=== PATIENT | female | born 1930 | race Two or more races ===

== ENCOUNTER 2020-12-25 19:00 | Inpatient (IN) | payer MEDICARE ==
[~2020-12-25] VITALS: Ht 165.1 cm; Wt 55.5 kg
--- NOTE | 2020-12-25 19:10 | NUR ---
PT BIBRA C/O HEADACHE. PT AAOX2 BREATHING EVENLY AND UNLABORED. 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 PT ATTACHED TO MONITOR AND POX. PT GIVEN BLANKET AND CALL LIGHT WITHIN REACH
--- NOTE | 2020-12-25 19:10 | NUR ---
Note kristianone in EDM - 12/25/20 at 1930 by DE PT BIBRA C/O HEADACHE. PT AAOX4 BREATHING EVENLY AND UNLABORED. 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 PT ATTACHED TO MONITOR AND POX. PT GIVEN BLANKET AND CALL LIGHT WITHIN REACH
--- NOTE | 2020-12-25 19:12 | NUR ---
TAKEN TO CT
[2020-12-25] MEDS ORDERED: IV NS 0.9% 1,000 ML BAG IV ONE (19:30)
[2020-12-25 19:43] LABS: BASOPHILS % (AUTO) 0.4 % (0.0-2.0); EOSINOPHILS % (AUTO) 0.7 % (0.0-6.0); HEMATOCRIT 38 % (33-45); HEMOGLOBIN 12.4 g/dL (11.5-14.8); LYMPHOCYTES # (AUTO) 1.2 K/uL (0.8-4.8); LYMPHOCYTES % (AUTO) 15.2 % (20.0-44.0); MEAN CORPUSCULAR HGB CONC 33 g/dl (31.0-36.0); MEAN CORPUSCULAR VOLUME 94 fL (82-100); MONOCYTES # (AUTO) 0.9 K/uL (0.1-1.30); MONOCYTES % (AUTO) 11.5 % (2.0-12.0); NEUTROPHILS # (AUTO) 5.8 K/uL (1.8-8.9); NEUTROPHILS % (AUTO) 72.2 % (43.0-81.0); PLATELET COUNT (AUTO) 206 K/uL (150-450); RED BLOOD CELL COUNT(AUTO) 4.03 MIL/uL (4.0-5.2)
--- NOTE | 2020-12-25 19:45 | NUR ---
BLOOD OBTAINED AND SENT TO LAB
[2020-12-25 19:54] LABS: CALCIUM, SERUM 9.5 mg/dL (8.5-10.1); CARBON DIOXIDE 27 mmol/L (21-32); CHLORIDE 102 mmol/L (98-107); GLUCOSE 130 mg/dL (74-106); POTASSIUM 3.5 mmol/L (3.5-5.1); SODIUM SERUM 139 mmol/L (136-145); UREA NITROGEN, BLOOD 23 mg/dL (7-18)
[2020-12-25 19:55] LABS: CREATININE 0.8 mg/dL (0.6-1.3)
[2020-12-25 20:00] LABS: SERUM AMMONIA 0 umol/L (11-32)
[2020-12-25 20:01] LABS: ALANINE AMINOTRANSFERASE 25 U/L (12-78); ALBUMIN 3.6 g/dL (3.4-5.0); ALKALINE PHOSPHATASE 70 U/L (46-116); ASPARTATE AMINOTRANSFERASE 23 U/L (15-37); BILIRUBIN,DIRECT 0.1 mg/dL (0.0-0.2); BILIRUBIN,TOTAL 0.5 mg/dL (0.2-1.0)
[2020-12-25 20:02] LABS: ACETAMINOPHEN < 2 ug/ml (10-30); TOTAL PROTEIN, SERUM 7.1 g/dL (6.4-8.2)
[2020-12-25 20:14] LABS: BILIRUBIN,URINE Negative (NEGATIVE); COLOR,URINE YELLOW (YELLOW); LEUKOCYTE ESTERASE ,URINE Trace (NEGATIVE); NITRITE, URINE Negative (NEGATIVE); PROTEIN,URINE Negative (NEGATIVE); UGLUCOSE Negative (NEGATIVE); UROBILINOGEN,URINE 0.2 EU/dL (0.2)
[2020-12-25 20:15] LABS: ALCOHOL, BLOOD < 3 mg/dL (0-0)
[2020-12-25] MEDS ORDERED: ENOXAPARIN SODIUM 80 MG/0.8 ML DISP.SYRIN SQ ONE (20:26)
[2020-12-25] MEDS ORDERED: ASPIRIN 325 MG TABLET ONE (20:26)
[2020-12-25 20:30] LABS: BACTERIA,URINE Few /HPF (None Seen); RBC,URINE NONE SEEN /HPF (0-2); SQUAMOUS EPITHELIAL CELL,UR Few /HPF (None Seen)
[2020-12-25] MEDS ORDERED: ENOXAPARIN SODIUM 60 MG/0.6 ML DISP.SYRIN SQ ONE (20:30)
[2020-12-25] MEDS ORDERED: ASPIRIN 81 MG TAB.CHEW PO ONE (20:30)
[2020-12-25] MEDS ORDERED: BENA5TAB5 PO (20:47)
[2020-12-25] MEDS ORDERED: DIGO125T PO (20:48)
[2020-12-25] MEDS ORDERED: WARF-68 PO (20:50)
--- NOTE | 2020-12-25 20:55 | NUR ---
VERBAL ORDER 0.5MG IV OF ATIVAN
[2020-12-25] MEDS ORDERED: LORAZEPAM INJ 2 MG/ML VIAL ONE (20:56)
[2020-12-25 21:03] LABS: THYROID STIMULATING HORMONE 2.634 uIU/mL (0.358-3.74)
--- NOTE | 2020-12-25 21:03 | NUR ---
FACESHEET AND CLINICALS FAXED TO [facility].
[2020-12-25] MEDS ORDERED: LORAZEPAM INJ 2 MG/ML VIAL IV ONE (21:30)
--- NOTE | 2020-12-25 22:15 | NUR ---
TELE 312-2
--- NOTE | 2020-12-25 22:18 | NUR ---
PT PLACED ON 2L O2 FOR COMFORT
--- NOTE | 2020-12-25 22:24 | NUR ---
gave report to brandie Conti for augustine
[2020-12-25] MEDS ORDERED: DULO20CA PO (22:28)
[2020-12-25] MEDS ORDERED: METOPROLOL TARTRATE INJ 5 MG/5 ML AMPUL IVP ONE (22:30)
[2020-12-25] MEDS ORDERED: METOPROLOL TARTRATE INJ 5 MG/5 ML AMPUL ONE (22:39)
[2020-12-25 23:05] VITALS: BP 154/77
--- NOTE | 2020-12-25 23:10 | NUR ---
CRYSTALIZER TENDER Opening/Admitting Notes Patient arrived via gurney at approximately 2305 accompanied by Nurse Suarez and an EMT. Patient was oriented to the staff and room. Patient's on room air with no respiratory distress noted. Patient's connected to a tele monitor with no cardiac distress noted. Patient has an IV access on her right AC G#20, which is intact and patent. Patient has a caregiver at bedside. Patient's in no acute distress at this time. Safety measures in place: Bed locked, bed alarm on, side rails up x3, and call light within reach. Will continue to monitor the patient.
[2020-12-25] MEDS ORDERED: MAG HYDROX/AL HYDROX/SIMETH 30 ML UDC PO PRN (23:30)
[2020-12-25] MEDS ORDERED: Z GUARD REMEDY 2 OZ OINT TP PRN (23:30)
[2020-12-25] MEDS ORDERED: MAGNESIUM HYDROXIDE 30 ML UDC PO PRN (23:30)
[2020-12-25] MEDS ORDERED: IV NS 0.9% 1,000 ML IV PRN (23:30)
[2020-12-25] MEDS ORDERED: ZOLPIDEM TARTRATE 5 MG TABLET PO PRN (23:30)
[2020-12-25] MEDS ORDERED: ONDANSETRON HCL/PF 4 MG/2 ML VIAL IVP PRN (23:30)
[2020-12-25] MEDS ORDERED: ACETAMINOPHEN 325 MG TABLET PO PRN (23:30)
[2020-12-26] MEDS ORDERED: DULOXETINE HCL 20 MG CAPSULE.DR PO SCH
[2020-12-26 02:33] VITALS: BP 154/77
[2020-12-26] MEDS ORDERED: POTA10TA10 PO (03:52)
[2020-12-26] MEDS ORDERED: SIMV-46 PO (03:52)
[2020-12-26] MEDS ORDERED: METO25TA6 PO (03:52)
[2020-12-26 04:00] VITALS: BP 149/68
--- NOTE | 2020-12-26 07:16 | NUR ---
chemist organic Closing Notes Patient's alert and oriented x2-3. Patient's on room air with no respiratory distress noted. Patient's connected to a tele monitor with no cardiac distress noted. Patient has an IV access on her right AC G#20, which is running NS at 75ml/hr. Patient has a caregiver at bedside. Patient's in no acute distress at this time. Safety measures in place: Bed locked, bed alarm on, side rails up x3, and call light within reach. Endorsed care to the day shift nurse.
[2020-12-26] MEDS ORDERED: PANTOPRAZOLE 40 MG TABLET.DR PO SCH (07:30)
--- NOTE | 2020-12-26 07:30 | NUR ---
PT RECEIVED RESTING COMFORTABLY IN BED. NO S/S OR C/O PAIN OR DISTRESS NOTED. SIDE RAILS UP X2, CALL LIGHT LEFT WITHIN REACH. WILL CONTINUE PLAN OF CARE.
[2020-12-26 08:00] VITALS: BP 152/83
[2020-12-26] MEDS ORDERED: POTA10CA43 PO (08:28)
[2020-12-26] MEDS ORDERED: WARF-68 PO (08:28)
[2020-12-26] MEDS ORDERED: DIGOXIN 0.125 MG TABLET PO SCH (09:00)
[2020-12-26] MEDS ORDERED: METOPROLOL TARTRATE 25 MG TABLET PO SCH (09:00)
[2020-12-26] MEDS ORDERED: ASPIRIN 325 MG TABLET PO SCH (09:00)
[2020-12-26] MEDS ORDERED: BENAZEPRIL HCL 5 MG TABLET PO SCH (09:00)
[2020-12-26 09:35] LABS: ALBUMIN 3.7 g/dL (3.4-5.0); BILIRUBIN,TOTAL 1.1 mg/dL (0.2-1.0); CALCIUM, SERUM 9.2 mg/dL (8.5-10.1); CREATININE 0.8 mg/dL (0.6-1.3); MAGNESIUM 1.6 mg/dL (1.8-2.4); POTASSIUM 3.1 mmol/L (3.5-5.1); TOTAL PROTEIN, SERUM 7.3 g/dL (6.4-8.2)
[2020-12-26 09:43] LABS: BASOPHILS % (AUTO) 0.5 % (0.0-2.0); EOSINOPHILS % (AUTO) 0.9 % (0.0-6.0); HEMATOCRIT 38 % (33-45); HEMOGLOBIN 12.5 g/dL (11.5-14.8); LYMPHOCYTES # (AUTO) 1.2 K/uL (0.8-4.8); MEAN CORPUSCULAR HGB CONC 33 g/dl (31.0-36.0); MEAN CORPUSCULAR VOLUME 95 fL (82-100); MONOCYTES # (AUTO) 0.7 K/uL (0.1-1.30); MONOCYTES % (AUTO) 9.2 % (2.0-12.0); NEUTROPHILS # (AUTO) 5.3 K/uL (1.8-8.9); NEUTROPHILS % (AUTO) 72.4 % (43.0-81.0); PLATELET COUNT (AUTO) 224 K/uL (150-450); RED BLOOD CELL COUNT(AUTO) 4.03 MIL/uL (4.0-5.2); WHITE BLOOD COUNT (AUTO) 7.3 K/uL (4.3-11.0)
[2020-12-26 09:46] LABS: THYROID STIMULATING HORMONE 3.162 uIU/mL (0.358-3.74)
[2020-12-26] MEDS ORDERED: HYDR-4075 PO (09:53)
[2020-12-26 10:00] VITALS: BP 152/83
[2020-12-26 10:07] LABS: DIGOXIN 0.66 ng/mL (0.90-2.00)
--- NOTE | 2020-12-26 10:55 | NUR ---
Cryptoanalysis Teacher consult: visitor services specialist consult requested to discuss code status. Patient's daughter requested DNR status. Patient is 89-year-old, female. SW met with patient at her bedside in the med-surg unit. Patient was calm and resting. Patient's radiologic electronic specialist was at the bedside. Patient was alert and oriented x4. SW discussed the patient's living arrangements. Patient stated that she currently has 24h caregivers and lives at [address] [place] [id number]; [phone]. Patients caregiver, Marylou Hoang, , provided SW with patients daughters contact information, Sushila, . SW asked the patient if the patients daughter is her next of kin and patient agreed. Patients caregiver reported that the patients spouse is . SW asked the patient if she agreed to DNR code status and patient agreed. SW offered the patient a senior resource packet and senior booklet New Lifestyles: Guide to Long-Term and Care. Patient accepted the resources and thanked REGINA. REGINA discussed discharge plans with the patient and patients caregiver. Patient will return to her prior living arrangement at home and will be taken home by her caregiver. REGINA notified MAGALY Crum regarding order for DNR code status. MAGALY Crum to follow up with order. PLAN: Patient plans to return to prior living arrangement at the time of discharge. MAGALY Crum to follow up with order for code status. No further SS intervention at this time, however, SW will remain available as needed. SENIOR RESOURCES: ABUSE PREVENTION: ELDER ABUSE HOTLINE (12/01) ADULT PROTECTIVE SERVICES HOTLINE LONG-TERM CARE [facility] Region AREA ON AGING (HOTLINE) ADULT DAY HEALTH CARE CARE CENTERS: Private pay or Medi-lamar funded adult day care [facility] [facility] , [facility] , [facility] , [facility] Adult [facility] Care , [facility] Adult Day Health Care , [facility] Adult Day[facility] Center , [place] [facility] , [facility] Adult Center , [place] ALZHEIMERS DISEASE/DEMENTIA: Alzheimers Association Helpline [facility] Chapter www.alz.org/Community [facility] Department of Aging www.lacity.org Family Caregiver [place] www.caregiver.org [place] Caregiver Resources Center/Family Support www.[facility].org CANCER RESOURCES: [place] Cancer Society www.cancer.org Cancer Support Community www.CancerSupportVvsb.org: CancerCare www.cancercare.org [facility] Cancer Support [place] www.[facility] lander - lander.org [facility] HEALTH ASSOCIATIONS: AARP www.aarp.org ALS Association (ask for Rose) www.als.org [place] Diabetes Association www.diabetes.org [place] Heart Association www.heart.org [place] Lung Association www.lungusa.org [place] Parkinson Disease Association www.apdaparkinson.org [place] , www.redcross.org Arthritis Foundation www.arthritis.org Crohns & Colitis Foundation of [place] www.ccfa.org/chapters/bentley National Multiple Sclerosis Society www.nationalmssociety.org Myasthenia Gravis Foundation www.myasthenia-ca.org National Stroke Association www.stroke.org CONSERVATORSHIP & GUARDIANSHIP: AARZoë Cheyanne Kaur Legal Services Center for Health Care Rights [place] Information and Referral Supplier Diversity Director Foundation [facility]: [facility] Bar Referral Service [facility] Legal Services Office of the Public Guardian [place] EYESIGHT DISORDER RESOURCES: [place] Macular Degeneration Foundation [facility] www.[facility].org GRIEF AND BEREAVEMENT RESOURCES: The [place] , [facility] THE [place] Connection , [facility] Bereavement Center , [place] HEARING DISORDER RESOURCES: [place] Telephone Access Program Deaf and Disabled Telecommunications Program www.ddtp.[facility].ca.gov HearRx Hearing Centers ([place]) Better Hearing Systems , [place] GLAD ([facility] Agency on Deafness) V/ TTY; Pipe Line Gauger , [facility] Hearing [facility] -low income hearing aid assistance www.hca [facility] north flor[facility] hospitalfoundation.org [place] [facility] , Shelly HELP AT HOME CAREGIVER SUPPORT: In Home Support Services (Must have Medi-Lamar to be eligible) *Ask for a list of agencies that provide services to assist with care in the home. Local Senior Centers also have listings of care providers. HOME SAFETY MODIFICATIONS AND EQUIPMENT: Senior centers have additional referrals. [place] Housing and Community Investment Dept. Handyworker Program (low income) or Visit http://hcidla.[facility].org/wbd-ejaqkk-zp for more information National Seating and Mobility and/or ; Forever Active www.foreveractivemed.VASS Technologies Stay Home Safe www.Stayhomesafe.com LIFE ALERT RESPONSE SYSTEM: [employer] 733-099-3921 www. Dragon Innovation Life Alert 070-779-9647 www.Biscotti Life Station 386-407-9549 www.Execation.[employer]ASS Technologies Safe Return 002-578-6340 www.alz.or/safereturn Cell Phones for Seniors www.hField Technologies MEALS AND FOOD PROGRAMS: Nadine Meals on Wheels [phone] [place] Meals on Wheels 842-785-6244 [facility] [phone] [place] to the Homebound 735-099-4559 [place] to the Homebound [phone] [facility] to the Homebound [phone] [facility] Health Services to the Homebound [phone] [facility] [phone] [facility] [phone] ONE Generation [phone] [facility] [phone] [facility], [facility] [phone] Meals on Wheels [phone] For all ages: $6.85/ meal w side. Delivered M-F from 10 am-1pm. Application and payment is done over the phone. Frozen meals available for weekends. Emergency Food Coalition [phone] x229 [facility] Cryptoanalysis Teacher [phone] [facility] [phone] [facility]- Brown bag lunches [phone] [facility] [phone] MEAL/GROCERY DELIVERY PROGRAMS: Yajaira Senior Gourmet Meals [phone]- [facility] [phone]- [facility] Magic Kitchen [phone] Moms Meals [phone] (ask [place] for Discount Select grocery stores may provide delivery. MEDICAL INSURANCE SUPPORT SERVICES: Center for Health Care Rights [phone] Health Insurance Counseling/Advocacy Programs (HICAP)-Must have Medicare. Offers counseling for Medi-Lamar eligibility [phone] [facility] Cryptoanalysis Teacher 442-250-3829 www.[facility] healthcare.ca.gov Medicare 515-193-1482 www.socialsecurity.org Social Security [phone] SENIOR ACTIVITY PROGRAMS: *Contact a local senior center, adult school, recreation facility or community college for education, fitness, recreation, and social programs. Aquatic Therapy and Adapted Exercise programs through [facility] [phone] Encore at [facility] 872-788-9928 www.[facility]/encore U- Senior Friends [phone] [place] Senior Programs 035-865-9194 www.oasisnet.org Suddenly 65 www.Tradeos.com SENIOR CENTERS: [facility] [phone] [facility] [phone] [facility] [phone] [facility] [phone] [facility] [phone] [facility] [phone] [facility] [phone] [facility] [phone] One Generation, [facility] [phone] [facility] [phone] [phone] [facility] [phone] [facility] [place] [phone] TRANSPORTATION: Local [facility] Centers may have applications for transportation programs and additional resources. ACCESS Services 505-259-8478 Transportation for seniors and disabled persons 7 days a week requiring 254 hr. advance reservation. Must apply and register for program aldo eligible. CITY RIDE 200-493-4220 or [phone] Transportation for seniors and persons with ADA card/metro disabled card in the [facility]. M-F only. Must register for services. ONE GENERATION [phone] Serves 65 years + in conjunction with city ride program. Must be registered with both programs. A to B Transport [phone] Provides wheelchair/gurney van service. Adult Medical Transport [phone] Accepts Medi-lamar with prior authorization. Care Van [phone] Provides wheelchair Transport. [facility] Wide Transportation [phone] Provides gurney service [facility]le [facility] [phone] Gurney Transport. [facility] Transportation [phone] wheelchair & gurney transport [facility] Transportation [phone] wheelchair & gurney transport [place] Non-Emergency Transport [phone] wheelchair & gurney transport [facility] Living [place] [phone] Short Term Transportation primarily for adults with disabilities on social security income. Nominal fee may apply and a reservation is required. City Cab [phone] or [phone] [facility] [phone] [place] [address] Referral Services -[phone] For additional programs & services
[2020-12-26 12:00] VITALS: BP 156/63
--- NOTE | 2020-12-26 13:54 | NUR ---
DISCHARGE INSTRUCTIONS GIVEN ORDERED. ENCOURAGED TO FOLLOW UP WITH PMD INSTRUCTED. ALL QUESTIONS AND CONCERNS ADDRESSED. PATIENT VERBALIZED UNDERSTANDING. MEDICATION RECONCILIATION FORM COMPLETED. COPY GIVEN TO PATIENT. IV REMOVED WITH CATHETER INTACT, PRESSURE DRESSING APPLIED. TELE UNIT RETURNED TO STATION. PATIENT TAKEN TO VEHICLE VIA WHEELCHAIR WITH ALL PERSONAL BELONGINGS ACCOMPANIED BY STAFF AND CAREGIVER. NO DISTRESS NOTED AT TIME OF DEPARTURE.
[2020-12-26] MEDS ORDERED: WARFARIN SODIUM 2 MG TABLET PO SCH (17:00)
== END 2020-12-26 13:50 | disposition home or self-care (01) | DRG 102 ==
LOC: ER 19:03 → TELE 22:17
PROVIDERS: ADMIT Hospitalist; ATTEND Nurse Practitioner Acute Care
DX: G43.909 Migraine, unspecified, not intractable, without status migrainosus (principal); I21.4 Non-ST elevation (NSTEMI) myocardial infarction; I16.0 Hypertensive urgency; F32.9 Major depressive disorder, single episode, unspecified; Z79.01 Long term (current) use of anticoagulants; I10 Essential (primary) hypertension; I25.10 Atherosclerotic heart disease of native coronary artery without angina pectoris; I48.91 Unspecified atrial fibrillation; Z79.899 Other long term (current) drug therapy; Z95.2 Presence of prosthetic heart valve; F03.90 Unspecified dementia, unspecified severity, without behavioral disturbance, psychotic disturbance, mood disturbance, and anxiety
CPT/HCPCS: 36415; 70450-TC; 71045-TC; 80048-TC; 80053-TC; 80061-TC; 80076-TC; 80162-TC; 81001; 82140-TC; 83735-TC; 84100-TC; 84443-TC; 84484-TC; 85025-TC; 85730-TC; 93307-TC; C9803; G0378; G0480; J1650; J2060; J3490; J7030